=== PATIENT | male | born 1950 | race Caucasian/White ===

== ENCOUNTER → 2017-06-01 | Outpatient (CLI) | payer OTHER ==
[~2017-06-01] MED LIST: ALEVE220 MG PO; ALLOPURINOL 10100 M3 PO; CARVEDILOL3.125 MG PO; COUMADIN 5 MG TA5 M1 PO; DEPO-TESTO200 MG/1 M; FUROSEMIDE 40 M40 M1 PO; LEVITRA20 MG PO; LISINOPRIL2.5 MG PO; MAGNESIUM400 MG PO; MUCINEX600 MG PO; PACERONE 200 M200 M1 PO; POTASSIUM20 PO; SIMVASTATIN20 MG PO
== END ==
LOC: M.ULTRA 07:16
DX: K21.9 Gastro-esophageal reflux disease without esophagitis (principal); R16.1 Splenomegaly, not elsewhere classified

== ENCOUNTER → 2018-02-11 | Outpatient (CLI) | payer OTHER ==
[2018-02-11 09:01] LABS: INR 1.1; PROTIME 11.6 Seconds (9.20-11.50)
== END ==
LOC: M.LAB 06:16
PROVIDERS: Anesthesiology
DX: Z01.812 Encounter for preprocedural laboratory examination (principal); I48.91 Unspecified atrial fibrillation; Z79.01 Long term (current) use of anticoagulants

== ENCOUNTER → 2018-02-27 | Outpatient (CLI) | payer OTHER, MEDICARE | LOC: M.LAB 07:55 | DX: I48.91 Unspecified atrial fibrillation (principal); D71 Functional disorders of polymorphonuclear neutrophils; E78.5 Hyperlipidemia, unspecified; J84.10 Pulmonary fibrosis, unspecified; Z79.899 Other long term (current) drug therapy ==

== ENCOUNTER → 2018-03-11 | Outpatient (CLI) | payer OTHER, MEDICARE | LOC: M.NUC 07:10 | DX: K31.84 Gastroparesis (principal) ==

== ENCOUNTER → 2018-05-06 | Outpatient (CLI) | payer OTHER, MEDICARE ==
--- NOTE | 2018-05-06 17:14 | 2DMMODE ---
[place] [address] 2 D/M-MODE ECHOCARDIOGRAM Name: EPIFANIO HUDSON CHRISTOPHER Room: [facility]#: [id number] Admission: 05/06/18 Attend Phys: Torres Lopez Discharge: Date of : 48 Date of Service: 05/06/18 1714 Report #: [id number] THIS REPORT FOR: //name// APPROVED REPORT Study performed: 05/06/2018 08:10:48 EXAM: Comprehensive 2D, Doppler, and color-flow Echocardiogram Patient Location: Out-Patient Status: routine BSA: 2.21 HR: 64 bpm BP: 142/72 mmHg Other Information Study Quality: Good Indications Aortic Valve Disease Cardiomyopathy Hypertension/HDD 2D Dimensions IVSd: 11.79 (7-11mm) LVOT Diam: 20.28 (18-24mm) LVDd: 42.62 mm PWd: 11.24 (7-11mm) Ascending Ao: 31.25 (22-36mm) LVDs: 24.93 (25-40mm) Aortic Root: 31.68 mm Volumes Left Atrial Volume (Systole) LA ESV Index: 15.30 mL/m2 Aortic Valve AoV Peak Olivier.: 1.31 m/s AO Peak Gr.: 6.84 mmHg LVOT Max P.30 mmHg AO Mean Gr.: 3.72 mmHg LVOT Mean P.53 mmHg LVOT Max V: 0.91 m/s AO V2 VTI: 24.47 cm LVOT Mean V: 0.56 m/s NICOL (VTI): 2.52 cm2 LVOT V1 VTI: 19.07 cm AI Dawson: 2.61 m/s2 AI PHT: 511.53 [place] [address] 2 D/M-MODE ECHOCARDIOGRAM Name: EPIFANIO HUDSON CHRISTOPHER [id number] Admission: 05/06/18 Attend Phys: Torres Lopez Discharge: Date of : 48 Date of Service: 05/06/18 1714 Report #: [id number] E/A Ratio: 0.73 MV Decel. Time: 256.92 ms MV E Max Olivier.: 0.40 m/s MV PHT: 74.51 ms MVA (PHT): 2.95 cm2 TDI E/Lateral E': 3.64 E/Medial E': 6.67 Medial E' Olivier.: 0.06 m/s Lateral E' Olivier.: 0.11 m/s Pulmonary Valve PV Peak Olivier.: 1.33 m/s PV Peak Gr.: 7.10 mmHg Tricuspid Valve RAP Estimate: 5.00 mmHg TR Peak Gr.: 19.43 mmHg RVSP: 24.43 mmHg PA Pressure: 24.43 mmHg Left Ventricle The left ventricle is normal size. There is normal LV segmental wall motion. Mild concentric left ventricular hypertrophy. Left ventricular systolic function is normal. The left ventricular ejection fraction is within the normal range. LVEF is 55-60%. Grade I - abnormal relaxation pattern. Right Ventricle The right ventricle is normal size. The right ventricular systolic function is normal. Atria The left atrium size is normal. The right atrium size is normal. Aortic Valve Aortic valve leaflets are mildly thickened. Mild to moderate aortic regurgitation. There is no aortic valvular stenosis. Mitral Valve The mitral valve is normal in structure. Mild mitral regurgitation. No evidence of mitral valve stenosis. Tricuspid Valve The tricuspid valve is normal in structure. Mild [place] [address] 2 D/M-MODE ECHOCARDIOGRAM Name: EPIFANIO HUDSON Room: [facility]#: [id number] Admission: 05/06/18 Attend Phys: Torres Lopez Discharge: Date of : 48 Date of Service: 05/06/18 1714 Report #: [id number] Pulmonic Valve The pulmonary valve is normal in structure. Mild pulmonic regurgitation. Great Vessels The aortic root is normal in size. IVC is normal in size and collapses >50% with inspiration. Pericardium There is no pericardial effusion. <Conclusion> Mild concentric left ventricular hypertrophy. LVEF is 55-60%. Aortic valve leaflets are mildly thickened. Mild to moderate aortic regurgitation. Mild mitral regurgitation. <ELECTRONICALLY SIGNED> By: Jean-Pierre Resendiz MD, FACC 05/06/181713 13 13 Jean-Pierre Resendiz MD, FACC /INF
== END ==
LOC: M.CRD 06:52
DX: I08.3 Combined rheumatic disorders of mitral, aortic and tricuspid valves (principal); I11.0 Hypertensive heart disease with heart failure; I50.22 Chronic systolic (congestive) heart failure; I48.0 Paroxysmal atrial fibrillation

== ENCOUNTER → 2018-05-09 | Outpatient (CLI) | payer OTHER, MEDICARE ==
[2018-05-09 14:07] LABS: ALBUMIN 4.6 g/dL (3.4-5.0); DIRECT BILIRUBIN 0.1 mg/dL (<0.1-0.3); TOTAL BILIRUBIN 0.6 mg/dL (<0.1-1.0); TOTAL PROTEIN 7.7 g/dL (6.4-8.2)
== END ==
LOC: M.LAB 13:36
PROVIDERS: Internal Medicine
DX: J84.10 Pulmonary fibrosis, unspecified (principal); Z79.899 Other long term (current) drug therapy

== ENCOUNTER → 2018-11-21 | Outpatient (CLI) | payer OTHER, MEDICARE | LOC: M.LAB 14:45 | DX: G31.84 Mild cognitive impairment of uncertain or unknown etiology (principal) ==

== ENCOUNTER → 2019-02-11 | Outpatient (CLI) | payer OTHER, MEDICARE ==
[2019-02-11 15:02] LABS: ALBUMIN 4.5 g/dL (3.4-5.0); DIRECT BILIRUBIN 0.1 mg/dL (<0.1-0.3); TOTAL BILIRUBIN 0.5 mg/dL (<0.1-1.0); TOTAL PROTEIN 7.3 g/dL (6.4-8.2)
== END ==
LOC: M.LAB 14:19
PROVIDERS: Internal Medicine
DX: R91.1 Solitary pulmonary nodule (principal); I48.0 Paroxysmal atrial fibrillation; M47.814 Spondylosis without myelopathy or radiculopathy, thoracic region

== ENCOUNTER → 2019-05-05 | Outpatient (CLI) | payer OTHER, MEDICARE ==
--- NOTE | 2019-05-05 11:15 | 2DMMODE ---
[place] [address] 2 D/M-MODE ECHOCARDIOGRAM Name: EPIFANIO HUDSON CHRISTOPHER Room: [facility]#: [id number] Admission: 05/05/19 Attend Phys: Torres Lopze Discharge: Date of : 48 Date of Service: 05/05/19 1115 Report #: [id number] THIS REPORT FOR: //name// APPROVED REPORT Study performed: 05/05/2019 08:11:02 EXAM: Comprehensive 2D, Doppler, and color-flow Echocardiogram Patient Location: Out-Patient BSA: 2.26 HR: 68 bpm BP: 140/70 mmHg Other Information Study Quality: Good Indications Atrial Fibrillation Cardiomyopathy 2D Dimensions IVSd: 13.12 (7-11mm) LVOT Diam: 20.31 (18-24mm) LVDd: 48.57 mm PWd: 12.42 (7-11mm) Ascending Ao: 32.76 (22-36mm) LVDs: 26.18 (25-40mm) Aortic Root: 31.77 mm Volumes Left Atrial Volume (Systole) LA ESV Index: 15.40 mL/m2 Aortic Valve AoV Peak Olivier.: 0.94 m/s AO Peak Gr.: 3.54 mmHg LVOT Max P.09 mmHg AO Mean Gr.: 1.83 mmHg LVOT Mean P.87 mmHg LVOT Max V: 0.72 m/s AO V2 VTI: 16.75 cm LVOT Mean V: 0.42 m/s NICOL (VTI): 2.69 cm2 LVOT V1 VTI: 13.93 cm AI [place]: 1.46 m/s2 AI PHT: 803.38 ms Mitral Valve E/A Ratio: 0.83 MV Decel. Time: 283.86 [place] [address] 2 D/M-MODE ECHOCARDIOGRAM Name: EPIFANIO HUDSON CHRISTOPHER Room: [facility]#: [id number] Admission: 05/05/19 Attend Phys: Torres Lopez Discharge: Date of : 48 Date of Service: 05/05/19 1115 Report #: [id number] MV E Max Olivier.: 0.41 m/s MV PHT: 82.32 ms MVA (PHT): 2.67 cm2 TDI E/Lateral E': 3.15 E/Medial E': 8.20 Medial E' Olivier.: 0.05 m/s Lateral E' Olivier.: 0.13 m/s Pulmonary Valve PV Peak Olivier.: 1.30 m/s PV Peak Gr.: 6.78 mmHg Tricuspid Valve RAP Estimate: 5.00 mmHg TR Peak Gr.: 19.29 mmHg RVSP: 24.29 mmHg PA Pressure: 24.29 mmHg Left Ventricle The left ventricle is normal size. There is normal LV segmental wall motion. Mild concentric left ventricular hypertrophy. Left ventricular systolic function is normal. The left ventricular ejection fraction is within the normal range. LVEF is 55-60%. Grade I - abnormal relaxation pattern. Right Ventricle The right ventricle is normal size. The right ventricular systolic function is normal. Atria The left atrium size is normal. The right atrium size is normal. Aortic Valve Aortic valve is mildly calcified. Mild aortic regurgitation. There is no aortic valvular stenosis. Mitral Valve The mitral valve is normal in structure. Mild mitral regurgitation. No evidence of mitral valve stenosis. Tricuspid Valve The tricuspid valve is normal in structure. Mild tricuspid regurgitation. Pulmonic Valve The pulmonary valve is normal in structure[place] [address] 2 D/M-MODE ECHOCARDIOGRAM Name: EPIFANIO HUDSON Room: [facility]#: [id number] Admission: 05/05/19 Attend Phys: Torres Lopez Discharge: Date of : 48 Date of Service: 05/05/19 1115 Report #: [id number] regurgitation. Great Vessels The aortic root is normal in size. IVC is normal in size and collapses >50% with inspiration. Pericardium There is no pericardial effusion. <Conclusion> Mild concentric left ventricular hypertrophy. LVEF is 55-60%. Aortic valve is mildly calcified. Mild aortic regurgitation. <ELECTRONICALLY SIGNED> By: Jean-Pierre Resendiz MD, [facility] 05/05/19 1115 1115 111 Jean-Pierre Resendiz MD, FACC /INF
== END ==
LOC: M.CRD 08:00
DX: I08.8 Other rheumatic multiple valve diseases (principal); I48.0 Paroxysmal atrial fibrillation; I42.0 Dilated cardiomyopathy; I11.9 Hypertensive heart disease without heart failure

== ENCOUNTER → 2019-12-25 | Outpatient (CLI) | payer MEDICARE ==
[2019-12-25 14:56] LABS: ALBUMIN 4.4 g/dL (3.4-5.0); CALCIUM 9.3 mg/dL (8.5-10.1); CREATININE 1.6 mg/dL (0.6-1.3); TOTAL BILIRUBIN 0.7 mg/dL (<0.1-1.0); TOTAL PROTEIN 7.2 g/dL (6.4-8.2)
== END ==
LOC: M.LAB 14:26
PROVIDERS: ATTEND Registered Nurse
DX: I48.91 Unspecified atrial fibrillation (principal); M47.814 Spondylosis without myelopathy or radiculopathy, thoracic region; J84.10 Pulmonary fibrosis, unspecified

== ENCOUNTER → 2021-04-12 | Outpatient (CLI) | payer MEDICARE ==
[2021-04-12 10:04] LABS: ALBUMIN 4.3 g/dL (3.4-5.0); DIRECT BILIRUBIN 0.1 mg/dL (<0.1-0.3); TOTAL BILIRUBIN 0.6 mg/dL (<0.1-1.0); TOTAL PROTEIN 7.2 g/dL (6.4-8.2)
== END ==
LOC: M.LAB 09:05
PROVIDERS: ATTEND Internal Medicine
DX: J84.89 Other specified interstitial pulmonary diseases (principal); J92.9 Pleural plaque without asbestos; D71 Functional disorders of polymorphonuclear neutrophils; Z79.899 Other long term (current) drug therapy

== ENCOUNTER → 2021-06-06 | Outpatient (CLI) | payer MEDICARE ==
--- NOTE | 2021-06-06 10:05 | 2DMMODE ---
[place] [address] 2 D/M-MODE ECHOCARDIOGRAM Name: EPIFANIO HUDSON CHRISTOPHER Room: [facility]#: [id number] Admission: 06/06/21 Attend Phys: Meir Hernández, Discharge: Date of : 48 Date of Service: 06/06/21 1005 Report #: [id number] THIS REPORT FOR: cc: Staci Diaz Ghaison F. DO Holkins, John M. MD [facility] ~ APPROVED REPORT Study performed: 06/06/2021 09:13:05 EXAM: Comprehensive 2D, Doppler, and color-flow Echocardiogram Patient Location: Out-Patient BSA: 2.19 HR: 74 bpm BP: 132/80 mmHg Other Information Study Quality: Good Indications Dyspnea Cardiomyopathy 2D Dimensions IVSd: 12.64 (7-11mm) LVOT Diam: 21.50 (18-24mm) LVDd: 52.97 mm PWd: 9.20 (7-11mm) Ascending Ao: 34.93 (22-36mm) LVDs: 30.15 (25-40mm) Aortic Root: 35.02 mm Volumes Left Atrial Volume (Systole) LA ESV Index: 15.60 mL/m2 Aortic Valve AoV Peak Olivier.: 1.41 m/s AO Peak Gr.: 7.97 mmHg LVOT Max P.32 mmHg AO Mean Gr.: 4.52 mmHg LVOT Mean P.90 mmHg LVOT Max V: 1.04 m/s AO V2 VTI: 27.82 cm LVOT Mean V: 0.63 m/s NICOL (VTI): 2.61 cm2 LVOT V1 VTI: 19.97 cm AI [place]: 2.64 m/s2 AI PHT: 524.06 [place] [address] 2 D/M-MODE ECHOCARDIOGRAM Name: EPIFANIO HUDSON CHRISTOPHER Room: [facility]#: [id number] Admission: 06/06/21 Attend Phys: Meir Hernández, Discharge: Date of : 48 Date of Service: 06/06/21 1005 Report #: [id number] Mitral Valve E/A Ratio: 0.89 MV Decel. Time: 205.12 ms MV E Max Olivier.: 0.58 m/s MV PHT: 59.49 ms MVA (PHT): 3.70 cm2 TDI E/Lateral E': 4.83 E/Medial E': 6.44 Medial E' Olivier.: 0.09 m/s Lateral E' Olivier.: 0.12 m/s Pulmonary Valve PV Peak Olivier.: 1.32 m/s PV Peak Gr.: 6.94 mmHg Tricuspid Valve RAP Estimate: 5.00 mmHg TR Peak Gr.: 20.34 mmHg RVSP: 25.34 mmHg PA Pressure: 25.34 mmHg Left Ventricle The left ventricle is normal size. There is normal LV segmental wall motion. There is normal left ventricular wall thickness. Left ventricular systolic function is borderline. LVEF is 50-55%. Grade I - abnormal relaxation pattern. Right Ventricle The right ventricle is normal size. The right ventricular systolic function is normal. Atria The left atrium size is normal. The right atrium size is normal. Aortic Valve Mild aortic valve sclerosis. Mild aortic regurgitation. There is no aortic valvular stenosis. Mitral Valve The mitral valve is normal in structure. Mild mitral regurgitation. No evidence of mitral valve stenosis. Tricuspid Valve The tricuspid valve is normal in structure. [place] [address] 2 D/M-MODE ECHOCARDIOGRAM Name: EPIFANIO HUDSON Room: [facility]#: [id number] Admission: 06/06/21 Attend Phys: Meir Hernández, Discharge: Date of : 48 Date of Service: 06/06/21 1005 Report #: [id number] Pulmonic Valve The pulmonary valve is normal in structure. There is no pulmonic valvular regurgitation. Great Vessels The aortic root is normal in size. IVC is normal in size and collapses >50% with inspiration. Pericardium There is no pericardial effusion. <Conclusion> The left ventricle is normal size. There is normal left ventricular wall thickness. Left ventricular systolic function is borderline. LVEF is 50-55%. Grade I - abnormal relaxation pattern. The right ventricle is normal size. The left atrium size is normal. Mild aortic valve sclerosis. Mild aortic regurgitation. There is no aortic valvular stenosis. The mitral valve is normal in structure. Mild mitral regurgitation. The tricuspid valve is normal in structure. Mild tricuspid regurgitation. IVC is normal in size and collapses >50% with inspiration. There is no pericardial effusion. There is normal LV segmental wall motion. <ELECTRONICALLY SIGNED> By: Cristóbal Sylvester MD, FACC 06/06/21 1005 04 100 Cristóbal Sylvester MD, FACC /INF
--- NOTE | 2021-06-06 16:31 | CARDNUC ---
[place] [address] CARDIAC NUCLEAR IMAGING REPORT Name: EPIFANIO HUDSON CHRISTOPHER Room: [facility]#: [id number] Admission: 06/06/21 Attend Phys: Meir Hernández, Discharge: Date of : 48 Date of Service: 06/06/21 1631 Report #: [id number] THIS REPORT FOR: cc: Staci Diaz Ghaison F. DO Liston, Michael J. MD [facility] ~ APPROVED REPORT Imaging Protocol: Stress Tc-99m/Rest Tc-99m 1 day Study performed: 06/06/2021 08:30:00 Indication: Dyspnea Patient Location: Out-Patient Stress Tech: Marisol Jiang Stress Nurse: Lonnie Hutton RN NM Tech:SANDRINE Alcantara Ht: 5 ft 9 in Wt: 237 lbs BSA: 2.22 m2 HR: 68 bpm BP: 142/79 mmHg BMI: 34.99 Rhythm: Sinus Rhythm Medical History Medical History: Hyperlipidemia, HTN Medications: Amiodarone, Apixaban, Carvedilol, Zetia, Lisinopril, Rosuvastatin Allergies: No known drug allergies Cardiac Risk Factors: Hyperlipidemia, HTN, FHX of CAD Pretest Chest Pain Characteristics: No chest pain Resting Data Rest SPECT myocardial perfusion imaging was performed in supine position 30 minutes following the intravenous injection of 8.9 mCi of Tc-99m Sestamibi. Time of rest injection: 08:50 The images were gated to evaluate regional wall motion and calculate left ventricular ejection fraction. Administration Route: IV Pharmacologic Stress Pharmacologic stress test was performed by injecting Regadenoson 0.4 mg IV push over 10-15 seconds immediately followed by the intravenous injection of 31.6 mCi of Tc-99m Sestamibi. Time of stress injection: 09:50 [place] [address] CARDIAC NUCLEAR IMAGING REPORT Name: EPIFANIO HUDSON Room: [facility]#: [id number] Admission: 06/06/21 Attend Phys: Meir Hernández, Discharge: Date of : 48 Date of Service: 06/06/21 1631 Report #: [id number] Administration Route: IV Heart Rate at time of stress injection: 70 bpm. Gated Stress SPECT was performed 45 minutes after stress injection. The images were gated to evaluate regional wall motion and calculate left ventricular ejection fraction. Prone imaging was performed. Stress Test Details Stress Test: Pharmacologic stress testing performed using 0.4 mg of regadenoson per 5 mL given IV over 10 seconds. Reason for pharmacologic stress test: HTN. HR Max Heart Rate (APMHR): 149 bpm Resting HR: 68 bpm Target HR (85% APMHR): 126 bpm Max HR Achieved: 85 bpm % of APMHR: 57 Recovery HR: 84 bpm BP Resting BP: 142/79 mmHg Max BP: 131/83 mmHg Recovery BP: 132/73 mmHg ECG Resting ECG: Sinus Rhythm Stress ECG: Sinus Rhythm ST Change: None Arrhythmia: None Recovery ECG: Sinus Rhythm Recovery ST Change: None Recovery Arrhythmia: None Clinical Reason for Termination: Completed protocol Stress Symptoms: Dyspnea, flushing Scale: Sedentary The patient tolerated Lexiscan infusion without significant cardiac symptoms. Nurse Comments Report completed by Lonnie Hutton RN Stress ECG Conclusion The baseline twelve-lead EKG shows sinus rhythm without significant ST segment abnormality. EKGs obtained during and post Lexiscan stress show sinus rhythm with no significant [place] [address] CARDIAC NUCLEAR IMAGING REPORT Name: EPIFANIO HUDSON CHRISTOPHER Room: [facility]#: [id number] Admission: 06/06/21 Attend Phys: Meir Hernández, Discharge: Date of : 48 Date of Service: 06/06/21 1631 Report #: [id number] compared to baseline. There were no stress-induced arrhythmias. Study Quality Study: Fair Artifact: Moderate Apical thinning and diaphragmatic attenuation artifact Study Data At rest, the left ventricular ejection fraction was 66%.. Post stress, the left ventricular ejection was 54%.. TID = 1.16. Perfusion Perfusion images obtained in the supine position at rest and post Lexiscan stress show photopenia involving the anteroapical wall as well as portions of the inferior wall consistent with attenuation artifact. Post-rest prone imaging shows fairly uniform uptake of the radioisotope throughout the myocardium without defect. Wall Motion Gated images were not interpretable due to significant artifact. Review of the raw data suggest preserved LV systolic function. Nuclear Conclusion ECG Findings: negative for ischemia Clinical Findings: negative for ischemia Nuclear Findings: negative for ischemia Left Ventricular Function: Could not be interpreted accurately. Perfusion images show no reversible defects to suggest ischemia. Gated images were somewhat flawed making interpretation of left ventricular systolic function difficult. Suggest echocardiographic correlation. This is not a high risk study. <Conclusion> The baseline twelve-lead EKG shows sinus rhythm without significant ST segment abnormality. EKGs obtained during and post Lexiscan stress show sinus rhythm with no significant ST segment changes when compared to baseline. There were no stress-induced arrhythmias. <ELECTRONICALLY SIGNED> By: Meir Hernández MD, FACC 06/06/21 163 163 163 Meir Hernández MD, FACC /INF
== END ==
LOC: M.CRD 05-16 10:43 → M.NUC 09:00
PROVIDERS: ATTEND Internal Medicine Cardiovascular Disease
DX: I08.3 Combined rheumatic disorders of mitral, aortic and tricuspid valves (principal); I42.0 Dilated cardiomyopathy; I50.22 Chronic systolic (congestive) heart failure